=== PATIENT | male | born 1955 | race Caucasian/White ===

== ENCOUNTER 2017-04-14 10:30 | Emergency (ER) | payer BC ==
--- NOTE | 2017-04-14 12:12 | UC ---
Complaint Male HPI - HPI Summary HPI Summary: Mildly irritated patch of skin in the right groin area, gradually becoming more sore in the groin and skin of the scrotal sac. No fever. Aware of heaviness in the scrotum, with relatively mild pain. Has continued to work, and has not taken pain medications. No history of tick bite, but he is outdoors a lot, and his commonly has ticks attached. - History of Current Complaint Chief Complaint: UCGU Stated Complaint: PERSONAL Time Seen by Provider: 04/14/17 11:05 Hx Obtained From: Patient Onset/Duration: Gradual Onset, Lasting Days - 3 to 4 Timing: Constant Severity Initially: Mild Severity Currently: Moderate Pain Intensity: 2 Pain Scale Used: 0-10 Numeric Location: Scrotum Character: Constant Pressure - mildly uncomfortable, a little itchy. Aggravating Factor(s): Palpation Alleviating Factor(s): Nothing Associated Signs And Symptoms: Positive: Negative - aside from mild increase in urine frequency. - Risk Factors Testicular Torsion: Negative - Allergies/Home Medications Allergies/Adverse Reactions: Allergies Allergy/AdvReac Type Severity Reaction Status Date / Time Gluten Meal AdvReac Diarrhea Verified 04/14/17 10:47 Hay Fever AdvReac Red Eyes, Uncoded 04/14/17 10:47 Sneezing Home Medications: Home Medications Carisoprodol TAB* [Soma TAB*] 350 mg PO Q8H PRN 04/14/17 [History Confirmed ] Epinephrine [Epipen 2-Alexander] 0.3 mg IM SEE INSTRUCTIONS PRN 04/14/17 [History Confirmed 04/14/17] LORazepam TAB(*) [Ativan 0.5 MG TAB (*)] 0.5 mg PO TID PRN 04/14/17 [History Confirmed 04/14/17] PMH/Surg Hx/FS Hx/Imm Hx Previously Healthy: Yes Other GI/ History: mild BPH, monitoring for CA prostate. Psychological History: Anxiety - Surgical History Surgical History: Yes Surgery Procedure, Year, and Place: Left Inguinal Herniorrhaphy, ~2004, [place] - Family History Known Family History: Positive: Other - prostate cancer - Social History Occupation: Employed Full-time Alcohol Use: Occasionally Substance Use Type: None Smoking Status (MU): Former Smoker Length of Time of Smoking/Using Tobacco: ~1 PPD for 5 Years Have You Smoked in the Last Year: No When Did the Patient Quit Smoking/Using Tobacco: ~1991 Review of Systems Constitutional: Negative Skin: Rash Eyes: Negative ENT: Negative Respiratory: Negative Cardiovascular: Negative Gastrointestinal: Negative Genitourinary: Frequency Motor: Negative Neurovascular: Negative Musculoskeletal: Negative Neurological: Negative Psychological: Negative All Other Systems Reviewed And Are Negative: Yes Physical Exam Triage Information Reviewed: Yes Appearance: Well-Appearing, No Pain Distress Vital Signs: Initial Vital Signs Temp 98.3 F 04/14/17 10:45 Pulse 78 04/14/17 10:45 Resp 16 04/14/17 10:45 BP 132/75 04/14/17 10:45 Pulse Ox 99 04/14/17 10:45 Cardiovascular: Positive: RRR, No Murmur Abdominal Exam: Normal Abdomen Description: Positive: Nontender, No Organomegaly, Other: - NO inguinal adenopathy Musculoskeletal Exam: Normal Neurological: Positive: Alert, Muscle Tone Normal Skin: Positive: Other - right groin with erythema extending from groin, across pubis to the left of the penis, to the right scrotal sac. Skin of the scrotum mildly indurated. NO testical pain, no pain with palpation of the epididymis or spermatic cord. Complaint Male Course/Dx - Course Course Of Treatment: differential of cellulitis v erythema migrans. Will begin course of doxycycline. - Differential Dx/Diagnosis Differential Diagnosis/HQI/PQRI: Other - cellulitisl Provider Diagnoses: cellulitis v erythema migrans rash Discharge - Discharge Plan Condition: Stable Disposition: HOME Prescriptions: DOXYcycline CAP(*) [DOXYcycline 100MG CAP(*)] 100 mg PO BID #[id number] cap Patient Education Materials: Cellulitis (ED), Lyme Disease (ED) Additional Instructions: Lyme serology, blood count, and c reactive protein are pending. I suspect that this rash is erythema migrans, the rash of early Lyme disease ( try google searching images of the variations of the rash). The other possibility is cellulitis. Pending the results of lab work, begin use of doxycycline. Take it with food, but not dairy. Anticipate that the rash could worsen in the next 48 hours, and you could feel unwell. Images Perineum Male: 1 - area measures 21 x 14 cm
[2017-04-14 12:28] VITALS: BP 132/75
[2017-04-14 18:29] LABS: Hematocrit 44 % (42-52); Hemoglobin 15.2 g/dl (14.0-18.0); Mean Corpuscular HGB Conc 34 g/dl (31-36); Mean Corpuscular Hemoglobin 31 pg (27-31); Mean Corpuscular Volume 90 fL (80-94); Mean Platelet Volume 9 um3 (7.4-10.4); Red Blood Count 4.89 10^6/ul (4.0-5.4); Red Cell Distribution Width 13 % (10.5-15)
== END 2017-04-14 12:59 | disposition home or self-care (01) ==
LOC: UCCORT 10:30
DX: R21 Rash and other nonspecific skin eruption (principal); N40.0 Benign prostatic hyperplasia without lower urinary tract symptoms; F41.9 Anxiety disorder, unspecified; Z87.891 Personal history of nicotine dependence
CPT/HCPCS: 36415; 81003; 85027; 86140; 86618; 99212; G0463

== ENCOUNTER 2022-04-16 16:33 | Inpatient (IN) ==
[2022-04-16] MEDS ORDERED: Dexamethasone IV 4 MG/ML VIAL 1 ml VIAL IV SLOW PU ONE (20:41)
[2022-04-16] MEDS ORDERED: Enoxaparin 40 MG/0.4 ML SYR SUBCUT SCH (22:00)
[2022-04-16 22:04] LABS: ABS Eosinophils 0.3 10^3/ul (0-0.6); ABS Lymphocytes 1.7 10^3/ul (1.0-4.8); ABS Monocytes 0.4 10^3/ul (0-0.8); ABS Neutrophils 3.3 10^3/ul (1.5-7.7); Eosinophil % 5.9 %; Hematocrit 44 % (42-52); Hemoglobin 15.4 g/dL (14.0-18.0); Lymphocyte % 28.8 %; Mean Corpuscular HGB Conc 35 g/dL (31-36); Mean Corpuscular Hemoglobin 31 pg (27-31); Mean Corpuscular Volume 88 fL (80-94); Mean Platelet Volume 7.8 fL (7.4-10.4); Platelet Count 196 10^3/uL (150-450); Red Blood Count 5.01 10^6 /uL (4.18-5.48); Red Cell Distribution Width 13 % (10-15); White Blood Count 5.7 10^3/uL (3.5-10.8)
[2022-04-16 22:16] LABS: Activated Partial Thrombo Time 63.5 seconds (26.0-38.0); INR 0.99 (0.86-1.15)
[2022-04-16 22:24] LABS: Albumin 4.5 g/dL (3.2-5.2); Calcium 9.5 mg/dL (8.6-10.3); Globulin 2.2 g/dL (2-4); Potassium 4.5 mmol/L (3.5-5.0); Total Bilirubin 0.8 mg/dL (0.2-1.0); Total Protein 6.7 g/dL (6.4-8.9); eGFR CKD-EPI 96.8 (>60)
[2022-04-16 23:26] LABS: Hepatitis C Antibody Negative (Negative)
[2022-04-17] MEDS ORDERED: Dexamethasone IV 4 MG/ML VIAL 1 ml VIAL IV SLOW PU SCH
[2022-04-17] MEDS: Dexamethasone IV 4 MG/ML VIAL 1 ml VIAL IV SLOW PU SCH ×4 (04:16→21:46)
[2022-04-17] MEDS ORDERED: Pneumococcal Vac 23-Polyvalent IM ONE (09:00)
[2022-04-18] MEDS: Dexamethasone IV 4 MG/ML VIAL 1 ml VIAL IV SLOW PU SCH ×4 (04:10→21:43)
[2022-04-18 06:05] LABS: Activated Partial Thrombo Time 57.8 seconds (26.0-38.0); INR 1.03 (0.86-1.15)
[2022-04-18] MEDS ORDERED: Iohexol 350 (CONTRAST) 500 ML MDV IV ONE (11:11)
[2022-04-18 14:11] LABS: Activated Partial Thrombo Time 54.9 seconds (26.0-38.0); INR 0.99 (0.86-1.15)
[2022-04-19] MEDS: Dexamethasone IV 4 MG/ML VIAL 1 ml VIAL IV SLOW PU SCH ×4 (03:57→21:43)
[2022-04-19 13:13] LABS: PT/After 1 Hour Incubation 11.3 seconds (9.5-12.8); PT/Normal Control 11.1 seconds (9.5-12.8); PTT/After 1 HR Incubation 46.2 seconds (26.0-38.0)
[2022-04-20] MEDS: Dexamethasone IV 4 MG/ML VIAL 1 ml VIAL IV SLOW PU SCH ×2 (05:06→09:15)
[2022-04-20 11:04] VITALS: BP 144/85
[2022-04-21 11:59] LABS: DRVVT Screen Ratio 2.06 ratio (<1.20); LAC APTT 45 sec (25 - 37); Prothrombin Time(LAC) 10.6 sec (9.4 - 12.5)
[2022-04-21 12:12] LABS: Platelet Neutralization Proced 36
[2022-04-21 16:12] LABS: Coagulation F VIII Activity 192 % (55 - 200); von Willebrand Factor Activity 139 % (55 - 200)
== END 2022-04-20 14:05 | disposition home or self-care (01) | DRG 347 ==
LOC: ED 16:33 → EDHOLD 23:16 → SUATTDRO 23:16 → SSU 23:49
PROVIDERS: ADMIT Internal Medicine; ATTEND Student in an Organized Health Care Education/Training Program

== ENCOUNTER 2022-05-19 09:45 | Observation (INO) ==
[~2022-05-19 09:45] MED LIST: Buffered Lidocaine 1% SYRIN 1 ml INTRADERM ONE; Lactated Ringers 1000 ml BAG 1,000 ML IV SCH
[2022-05-31] MEDS ORDERED: Lactated Ringers 1000 ml BAG 1,000 ML IV SCH (06:00)
[2022-05-31] MEDS ORDERED: Buffered Lidocaine 1% SYRIN 1 ml INTRADERM ONE (06:00)
[2022-05-31 06:32] LABS: ABS Basophils 0.1 10^3/ul (0-0.2); ABS Eosinophils 0.2 10^3/ul (0-0.6); ABS Lymphocytes 1.3 10^3/ul (1.0-4.8); ABS Monocytes 0.5 10^3/ul (0-0.8); ABS Neutrophils 3.4 10^3/ul (1.5-7.7); Eosinophil % 3.9 %; Hematocrit 43 % (42-52); Hemoglobin 14.9 g/dL (14.0-18.0); Lymphocyte % 23.6 %; Mean Corpuscular HGB Conc 35 g/dL (31-36); Mean Corpuscular Hemoglobin 30 pg (27-31); Mean Corpuscular Volume 88 fL (80-94); Mean Platelet Volume 7.6 fL (7.4-10.4); Nucleated Red Blood Cells % 0.1; Platelet Count 209 10^3/uL (150-450); Red Blood Count 4.91 10^6 /uL (4.18-5.48); Red Cell Distribution Width 14 % (10-15); White Blood Count 5.6 10^3/uL (3.5-10.8)
[2022-05-31 07:10] LABS: Calcium 9.4 mg/dL (8.6-10.3); Potassium 4.3 mmol/L (3.5-5.0); eGFR CKD-EPI 96.4 (>60)
[2022-05-31] MEDS ORDERED: Propofol 10 MG/ML 20 ML BTL ONE (07:21)
[2022-05-31] MEDS ORDERED: fentaNYL 100 mcg/2 ml 50 MCG/ML VIAL ONE ×3 (07:21→10:39)
[2022-05-31] MEDS ORDERED: Lidocaine 2% PF 5 ML VIAL ONE (07:21)
[2022-05-31] MEDS ORDERED: Rocuronium 50 mg VIAL 10 mg/ml 5 ml VIAL (50 mg) ONE ×2 (07:21→09:14)
[2022-05-31] MEDS ORDERED: Midazolam 2 mg/2 ml VIAL 1 mg/ml 2 ml VIAL (2 mg) ONE (07:21)
[2022-05-31] MEDS ORDERED: oxyCODONE/Acetamin 5/325 mg TAB PO PRN (07:39)
[2022-05-31] MEDS ORDERED: Ondansetron 4 mg VIAL 2 MG/ML 2 ml VIAL IV PRN ×2 (07:39→09:48)
[2022-05-31] MEDS ORDERED: Naloxone 0.4 mg VIAL 0.4 mg/ml 1 ml VIAL IV PRN (07:39)
[2022-05-31] MEDS ORDERED: ceFAZolin 2 GM in NS PREMIX 2 GM/100 ML BAG IVPB ONE (07:41)
[2022-05-31] MEDS ORDERED: Dexamethasone IV 4 MG/ML VIAL 1 ml VIAL ONE (08:40)
[2022-05-31] MEDS ORDERED: Phenylephrine 40 mcg/mL 10mL (400mcg) SYRINGE ONE (08:40)
[2022-05-31] MEDS ORDERED: Ondansetron 4 mg VIAL 2 MG/ML 2 ml VIAL ONE (08:40)
[2022-05-31] MEDS ORDERED: Acetaminophen IV 1 GM/100ML 100 ML IV ONE (08:40)
[2022-05-31] MEDS ORDERED: NF:tadalafiL 5 MG TABLET (NF) PO PRN (09:53)
[2022-05-31] MEDS: fentaNYL 100 mcg/2 ml 50 MCG/ML VIAL IV PRN ×3 (10:11→10:43)
[2022-05-31] MEDS ORDERED: oxyCODONE/Acetamin 5/325 mg TAB ONE (10:39)
[2022-05-31] MEDS: Lactated Ringers 1000 ml BAG 1,000 ML IV SCH (12:18)
[2022-06-01] MEDS: Lactated Ringers 1000 ml BAG 1,000 ML IV SCH (02:23)
[2022-06-01] MEDS ORDERED: Cholecalciferol (VIT D3) 1,000 unit TAB PO SCH (09:00)
[2022-06-01 11:26] VITALS: BP 124/74
== END 2022-06-01 18:20 | disposition home or self-care (01) ==
LOC: INTOOBSV 05-31 06:05 → AA 05-31 06:05 → SSU 05-31 11:22
PROVIDERS: ADMIT Neurological Surgery; ATTEND Neurological Surgery